=== PATIENT | male | born 2000 | race Caucasian/White ===

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

== ENCOUNTER 2021-01-14 16:44 | Emergency (ER) | payer MEDICAID ==
[~2021-01-14] VITALS: Ht 165 cm; Wt 88.0 kg
[~2021-01-14 16:44] MED LIST changes: +OMEP20TA7 PO
--- NOTE | 2021-01-14 16:57 | ED Abdominal Pain ---
General Chief Complaint: Abdominal/GI Problems Stated Complaint: ABD PAIN Source of Information: Patient, EMS History of Present Illness Date Seen by Provider: Jan 14, 2021 Time Seen by Provider: 16:41 Initial Comments PT ARRIVES VIA [facility] EMS WALKS INTO ER ON HIS OWN WITHOUT DIFFICULTY, BRINGS AN OLD/WORN "WALKING STICK" --STATES HE WALKS EVERYWHERE PT WAS WALKING FROM [place] TO [place]--STATES "I WAS SUPPOSED TO MEET A VASU HERE IN [place]" HE WAS WALKING [place] [address], HE SAW [facility] AMBULANCE ( THEY WERE GOING BACK TO [place] AFTER BRINGING ANOTHER PT HERE) AND SO HE DID "FLAGGED DOWN" THE AMBULANCE TO BRING HIM HERE TO [place] STATES HE WAS NOT PLANNING TO COME TO ER AT ALL, BUT SAW THE AMBULANCE COMING [place] [address], SO HE FLAGGED THEM DOWN TO BRING HIM HERE TO [place] PT C/O EPIGASTRIC ABDOMINAL PAIN --OFF AND ON X 1 WEEK HAS NOT TAKEN ANYTHING FOR SYMPTOMS. SYMPTOMS NO DIFFERENT TODAY HAS NOT SOUGHT CARE UNTIL TODAY NO NAUSEA/VOMITING/DIARRHEA NO FEVER NO URINARY SYMPTOMS HAS BEEN EATING AND DRINKING NORMALLY, AND HAS A BOTTLE OF WATER WITH HIM. SMOKED MARIJUANA EARLIER TODAY STATES HE DOES DRINK ALCOHOL, BUT NOT TODAY STATES HE HAS HAD THIS BEFORE AND WAS PRESCRIBED ANTACIDS, BUT NEVER PICKED THEM UP HAS NOT FOLLOWED UP WITH ANYONE FOR THIS PROBLEM STATES HE HAS HAD COVID-19 VACCINE PCP: [facility]: [facility] Allergies and Home Medications Allergies Coded Allergies: aripiprazole (Verified Allergy, Unknown, 11/22/20) Home Medications Omeprazole 20 Mg Tablet.dr, 20 MG PO BID Prescribed by: ZELALEM PENNINGTON on 12/06/20 0158 Quetiapine Fumarate 100 Mg Tablet, 100 MG PO HS Prescribed by: QUIN SANTOS on 11/22/20 0548 Patient Home Medication List Home Medication List Reviewed: Yes Review of Systems Review of Systems Constitutional: no symptoms reported Respiratory: No Symptoms Reported Cardiovascular: No Symptoms Reported Gastrointestinal: See HPI, Abdominal Pain; Denies Constipated, Denies Diarrhea, Denies Nausea, Denies Vomiting Genitourinary: No Symptoms Reported Musculoskeletal: no symptoms reported Skin: no symptoms reported Psychiatric/Neurological: No Symptoms Reported Endocrine: No Symptoms Reported Hematologic/Lymphatic: No Symptoms Reported Past Nauyayq-Rrpdry-Scmykf Hx Patient Social History Tobacco Use?: Yes Tobacco type used: Cigarettes Smoking Status: Current Everyday Smoker Substance use?: Yes Substance type: Methamphetamine, Hallucinogens, Marijuana, Other (COCAINE, MUSHROOMS, ACID) Additional substance use comme: COCAINE, MUSHROOMS, ACID Substance frequency: Daily Alcohol Use?: Yes Alcohol Frequency: Several times a month Immunizations Up To Date Tetanus Booster (TDap): Less than 5yrs PED Vaccines UTD: Yes Seasonal Allergies Seasonal Allergies: No Past Medical History Surgeries: Yes (ROMÁN IN R LOWER LEG) Orthopedic Respiratory: No Cardiac: Yes Heart Murmur, Valvular Heart Disease Neurological: No Reproductive Disorders: No Genitourinary: No Gastrointestinal: No Musculoskeletal: No Endocrine: No HEENT: No Cancer: No Did You Recieve Any Treatments: No Psychosocial: Yes (ANGER ISSUES) ADD/ADHD, Anxiety, PTSD, Suicide Attempts, Bipolar, Depression Integumentary: No Blood Disorders: No Family Medical History No Pertinent Family Hx Physical Exam Vital Signs Vital Signs - First Documented 01/14/21 16:44 Temp 35.6 Pulse 90 Resp 18 B/P (MAP) 126/82 (97) Pulse Ox 98 O2 Delivery Room Air Capillary Refill : Height/Weight/BMI Height: 5'4" Weight: 180lbs. oz. 81.730964wq; 31.00 BMI Method:Stated General Appearance: WD/WN, no apparent distress, other (AMBULATES WITHOUT DIFFICULTY. DOES NOT APPEAR ILL OR TO BE IN ANY DISCOMFORT OR DISTRESS. SHIRT SOAKED WITH SWEAT, SKIN DAMP) Respiratory: normal breath sounds, no respiratory distress, no accessory muscle use Cardiovascular: regular rate, rhythm, no murmur Gastrointestinal: normal bowel sounds, soft, no organomegaly, no pulsatile mass; No distended, No guarding, No rebound; tenderness (MILD EPIGASTRIC TENDERNESS) Extremities: normal inspection Back: normal inspection, no CVA tenderness Neurologic/Psychiatric: resaw tailer II-XII nml as tested, no motor/sensory deficits, alert, oriented x 3 Skin: normal color, warm/dry Procedures/Interventions Suture Size: 5-0 Progress/Results/Core Measures Results/Orders Lab Results Laboratory Tests Test 01/14/21 16:58 Range/Units White Blood Count 5.3 4.3-11.0 10^3/uL Red Blood Count 4.96 4.30-5.52 10^6/uL Hemoglobin 16.1 13.3-17.7 g/dL Hematocrit 46 40-54 % Mean Corpuscular Volume 93 80-99 fL Mean Corpuscular Hemoglobin 33 25-34 pg Mean Corpuscular Hemoglobin Concent 35 32-36 g/dL Red Cell Distribution Width 12.4 10.0-14.5 % Platelet Count 154 130-400 10^3/uL Mean Platelet Volume 11.4 9.0-12.2 fL Immature Granulocyte % (Auto) 0 % Neutrophils (%) (Auto) 50 42-75 % Lymphocytes (%) (Auto) 39 12-44 % Monocytes (%) (Auto) 9 0-12 % Eosinophils (%) (Auto) 2 0-10 % Basophils (%) (Auto) 0 0-10 % Neutrophils # (Auto) 2.7 1.8-7.8 10^3/uL Lymphocytes # (Auto) 2.1 1.0-4.0 10^3/uL Monocytes # (Auto) 0.5 0.0-1.0 10^3/uL Eosinophils # (Auto) 0.1 0.0-0.3 10^3/uL Basophils # (Auto) 0.0 0.0-0.1 10^3/uL Immature Granulocyte # (Auto) 0.0 0.0-0.1 10^3/uL Sodium Level 139 135-145 MMOL/L Potassium Level 4.0 3.6-5.0 MMOL/L Chloride Level 104 98-107 MMOL/L Carbon Dioxide Level 24 21-32 MMOL/L Anion Gap 11 5-14 MMOL/L Blood Urea Nitrogen 8 7-18 MG/DL Creatinine 0.85 0.60-1.30 MG/DL Estimat Glomerular Filtration Rate > 60 BUN/Creatinine Ratio 9 Glucose Level 81 70-105 MG/DL Calcium Level 9.5 8.5-10.1 MG/DL Corrected Calcium 9.3 8.5-10.1 MG/DL Total Bilirubin 0.5 0.1-1.0 MG/DL Aspartate Amino Transf (AST/SGOT) 29 5-34 U/L Alanine Aminotransferase (ALT/SGPT) 28 0-55 U/L Alkaline Phosphatase 73 40-136 U/L Total Protein 7.3 6.4-8.2 GM/DL Albumin 4.3 3.2-4.5 GM/DL Amylase Level 57 25-125 U/L Lipase 16 8-78 U/L Serum Alcohol < 10 <10 MG/DL My Orders Orders - ETTA CATALAN DO Alcohol (01/14/21 16:49) Amylase (01/14/21 16:49) Cbc With Automated Diff (01/14/21 16:49) Comprehensive Metabolic Panel (01/14/21 16:49) Drug Screen Stat (Urine) (01/14/21 16:49) Lipase (01/14/21 16:49) Ua Culture If Indicated (01/14/21 16:49) Vital Signs/I&O 01/14/21 16:44 Temp 35.6 Pulse 90 Resp 18 B/P (MAP) 126/82 (97) Pulse Ox 98 O2 Delivery Room Air Progress Progress Note : Progress Note PT WITH INCREASING ANXIETY/AGITATION, AND WANTING TO EAT AND DRINK--ADVISED HE COULD NOT DO EITHER, HE COMPLAINED OF ABDOMINAL PAIN 0545--PT REFUSING TO GIVE URINE SPECIMEN, AND NOW WANTING TO LEAVE, AND PT NOW STATES "PAIN ISN'T BAD" --AMA PAPERS SIGNED Departure Impression Primary Impression: Epigastric abdominal pain Additional Impression: Left against medical advice Disposition: 07 AGAINST MEDICAL ADVICE Condition: Against Medical Advice Departure-Patient Inst. Referrals: [facility] (PCP/Family) Primary Care Physician Add. Discharge Instructions: All discharge instructions reviewed with patient and/or family. Voiced understanding. ETTA CATALAN DO Jan 14, 2021 16:57
[2021-01-14 17:07] LABS: BASOPHILS % (AUTO) 0 % (0-10); EOSINOPHILS # (AUTO) 0.1 10^3/uL (0.0-0.3); EOSINOPHILS % (AUTO) 2 % (0-10); HEMATOCRIT 46 % (40-54); HEMOGLOBIN 16.1 g/dL (13.3-17.7); LYMPHOCYTES # (AUTO) 2.1 10^3/uL (1.0-4.0); LYMPHOCYTES % (AUTO) 39 % (12-44); MEAN CORPUSCULAR HEMOGLOBIN 33 pg (25-34); MEAN CORPUSCULAR HGB CONC 35 g/dL (32-36); MEAN CORPUSCULAR VOLUME 93 fL (80-99); MEAN PLATELET VOLUME 11.4 fL (9.0-12.2); MONOCYTES # (AUTO) 0.5 10^3/uL (0.0-1.0); MONOCYTES % (AUTO) 9 % (0-12); NEUTROPHILS # (AUTO) 2.7 10^3/uL (1.8-7.8); NEUTROPHILS % (AUTO) 50 % (42-75); PLATELET COUNT 154 10^3/uL (130-400); WHITE BLOOD COUNT 5.3 10^3/uL (4.3-11.0)
[2021-01-14 17:27] LABS: ALANINE AMINOTRANSFERASE 28 U/L (0-55); ALBUMIN 4.3 GM/DL (3.2-4.5); ALKALINE PHOSPHATASE 73 U/L (40-136); AMYLASE 57 U/L (25-125); BILIRUBIN,TOTAL 0.5 MG/DL (0.1-1.0); BUN/CREATININE RATIO 9; CALCIUM 9.5 MG/DL (8.5-10.1); CARBON DIOXIDE 24 MMOL/L (21-32); CHLORIDE 104 MMOL/L (98-107); CREATININE SERUM 0.85 MG/DL (0.60-1.30); GFR ESTIMATED > 60; GLUCOSE 81 MG/DL (70-105); LIPASE 16 U/L (8-78); SODIUM 139 MMOL/L (135-145); TOTAL PROTEIN 7.3 GM/DL (6.4-8.2)
[2021-01-14 17:49] VITALS: BP 126/80
== END 2021-01-14 17:49 | disposition left against medical advice (07) ==
LOC: EDUNIT# 16:44 → ER 16:45
DX: R10.13 Epigastric pain (principal); F31.9 Bipolar disorder, unspecified; F17.210 Nicotine dependence, cigarettes, uncomplicated; Z79.899 Other long term (current) drug therapy
CPT/HCPCS: 80053; 82150; 83690; 85025; 99283; G0480; 36415; 80320

== ENCOUNTER 2021-04-29 10:06 | Emergency (ER) | payer MEDICAID ==
[~2021-04-29] VITALS: Ht 172 cm; Wt 91.8 kg
--- NOTE | 2021-04-29 11:16 | ED Lower Extremity ---
General Chief Complaint: Lower Extremity Stated Complaint: R KNEE PAIN Nursing Triage Note: TO ED PER EMS PICKED UP IN FRONT OF [employer]. STATES DID NOT WANT TO WAKE PEOPLE AT HOUSE. REPORTS ON FRIDAY WAS IN [place] DROPPED A DOOR ON HIS R KNEE AND WENT TO [facility] ER BY EMS NO X RAY DONE MAURICE WRAP IN PLACE. REPORTS KNEE CONT'T TO HURT. MAURICE WRAP REMOVED ON ADMIT NO SWELLING OR BRUSING NOTED. Source: patient Exam Limitations: no limitations History of Present Illness Date Seen by Provider: Apr 29, 2021 Time Seen by Provider: 11:14 Initial Comments To ER with reports of right knee pain for a few days. He dropped a door on his right knee and went to [facility]. He was given an Maurice wrap. The knee continues to hurt despite Tylenol and Motrin. Today EMS picked him up in front of [employer]. Onset: last week Severity: moderate Pain/Injury Location: right knee Method of Injury: direct blow Modifying Factors: Worse With Movement Allergies and Home Medications Allergies Coded Allergies: aripiprazole (Verified Allergy, Unknown, 11/22/20) Patient Home Medication List Home Medication List Reviewed: Yes Benztropine Mesylate (Benztropine Mesylate) 1 Mg Tablet, (Reported) Entered as Reported by: NAKUL RENEE on 11/22/20 0509 Guanfacine HCl (Guanfacine HCl ER) 3 Mg Tab.er.24h, (Reported) Entered as Reported by: NAKUL RENEE on 11/22/20 0509 Hydrocodone/Acetaminophen (Hydrocodone-Acetamin 5-325 mg) 1 Each Tablet, 1 TAB PO Q4H PRN for PAIN-MODERATE (5-7) Prescribed by: RAJ MCKEON on 04/29/21 1143 Omeprazole (Omeprazole) 20 Mg Tablet.dr, 20 MG PO BID Prescribed by: ZELALEM PENNINGTON on 12/06/20 0158 Quetiapine Fumarate (Seroquel) 100 Mg Tablet, 100 MG PO HS Prescribed by: QUIN SANTOS on 11/22/20 0548 Risperidone (Risperidone) 0.25 Mg Tablet, (Reported) Entered as Reported by: NAKUL RENEE on 11/22/20 0509 Sertraline HCl (Sertraline HCl) 25 Mg Tablet, (Reported) Entered as Reported by: NAKUL RENEE on 11/22/20 0509 Trazodone HCl (Trazodone HCl) 150 Mg Tablet, (Reported) Entered as Reported by: NAKUL RENEE on 11/22/20 0509 Review of Systems Constitutional: see HPI EENTM: see HPI Respiratory: no symptoms reported Cardiovascular: no symptoms reported Genitourinary: no symptoms reported Musculoskeletal: see HPI Skin: no symptoms reported Psychiatric/Neurological: No Symptoms Reported Past Jcueypo-Bzgsai-Tmhkqg Hx Patient Social History Tobacco Use?: Yes Substance use?: Yes Substance type: Marijuana Alcohol Use?: No Immunizations Up To Date Tetanus Booster (TDap): Less than 5yrs PED Vaccines UTD: Yes First/Initial COVID19 Vaccinat: November COVID19 Vaccination Victor Hugo: JAN COVID19 Vaccine 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: ABDOULAYE Seasonal Allergies Seasonal Allergies: No Past Medical History Surgeries: Yes (ROMÁN IN R LOWER LEG) Orthopedic Respiratory: No Cardiac: Yes Heart Murmur, Valvular Heart Disease Neurological: No Reproductive Disorders: No Genitourinary: No Gastrointestinal: No Musculoskeletal: No Endocrine: No HEENT: No Cancer: No Did You Recieve Any Treatments: No Psychosocial: Yes (ANGER ISSUES) ADD/ADHD, Anxiety, PTSD, Suicide Attempts, Bipolar, Depression Integumentary: No Blood Disorders: No Family Medical History No Pertinent Family Hx Physical Exam Vital Signs Vital Signs - First Documented 04/29/21 10:06 Temp 36.4 Pulse 87 Resp 18 B/P (MAP) 111/61 (78) Pulse Ox 96 O2 Delivery Room Air Capillary Refill : Less Than 3 Seconds Height, Weight, BMI Height: 5'4" Weight: 180lbs. oz. 81.433109hx; 31.00 BMI Method:Stated General Appearance: WD/WN, no apparent distress HEENT: PERRL/EOMI, normal ENT inspection Respiratory: no respiratory distress, no accessory muscle use Gastrointestinal: normal bowel sounds, non tender, soft Hips: bilateral hip non-tender, bilateral hip normal inspection, bilateral hip normal range of motion Legs: bilateral leg non-tender, bilateral leg normal inspection, bilateral leg normal range of motion Knees: left knee non-tender; bilateral knee normal inspection, bilateral knee normal range of motion, bilateral knee other (There is no effusion erythema ecchymosis or abrasion. Most of the tenderness is directly over the superior aspect of the patella.) Ankles: bilateral ankle non-tender, bilateral ankle normal inspection, bilateral ankle normal range of motion Feet: bilateral foot non-tender, bilateral foot normal inspection, bilateral foot normal range of motion Neurologic/Psychiatric: alert, normal mood/affect, oriented x 3 Skin: normal color, warm/dry Procedures/Interventions Suture Size: 5-0 Progress/Results/Core Measures Results/Orders My Orders Orders - RAJ MCKEON APRN Knee, Right, 3 Views (04/29/21 11:14) Hydrocodone/Apap 5/325 Tablet (Lortab 5 (04/29/21 12:00) Vital Signs/I&O 04/29/21 10:06 Temp 36.4 Pulse 87 Resp 18 B/P (MAP) 111/61 (78) Pulse Ox 96 O2 Delivery Room Air Blood Pressure Mean: 78 Departure Impression Primary Impression: Contusion of knee Disposition: 01 HOME, SELF-CARE Condition: Stable Departure-Patient Inst. Decision time for Depature: 11:41 Referrals: [facility] (PCP/Family) Primary Care Physician Patient Instructions: Knee Pain Add. Discharge Instructions: 1. Follow-up with primary care to discuss MRI if your symptoms do not improve. Return to ER for any concerns. All discharge instructions reviewed with patient and/or family. Voiced understanding. Scripts Hydrocodone/Acetaminophen (Hydrocodone-Acetamin 5-325 mg) 1 Each Tablet 1 TAB PO Q4H PRN for PAIN-MODERATE (5-7), #5 TAB Prov: RAJ MCKEON APRN 04/29/21 RAJ MCKEON APRN Apr 29, 2021 11:16
--- NOTE | 2021-04-29 11:42 | Diagnostic Imaging Report ---
CLINICAL INDICATION: Patient with swelling and bruising of the right knee, status post dropping a door on right knee. EXAM: X-ray of the right knee, 3 views. COMPARISON: None. FINDINGS: There is no acute fracture or dislocation. There is no knee effusion. There is no significant bone abnormality. IMPRESSION: There is no acute fracture or dislocation. Dictated by: Dictated on workstation # [id number]
[2021-04-29] MEDS ORDERED: ACHD5005 PO (11:43)
[2021-04-29] MEDS ORDERED: HYDROcodone/APAP 5 MG/325 MG (LORTAB) TAB PO ONE (12:00)
[2021-04-29 12:04] VITALS: BP 111/61
== END 2021-04-29 12:07 | disposition home or self-care (01) ==
LOC: EDUNIT# 10:06 → ER 10:07
DX: S80.01XA Contusion of right knee, initial encounter (principal); F41.9 Anxiety disorder, unspecified; F31.9 Bipolar disorder, unspecified; Z72.0 Tobacco use; Z79.899 Other long term (current) drug therapy; W20.8XXA Other cause of strike by thrown, projected or falling object, initial encounter
CPT/HCPCS: 73562

== ENCOUNTER 2021-06-29 00:50 | Emergency (ER) | payer MEDICAID ==
[~2021-06-29] VITALS: Ht 172 cm; Wt 91.0 kg
[~2021-06-29 00:50] MED LIST changes: +ACHD5005 PO
--- NOTE | 2021-06-29 01:17 | ED General ---
General Chief Complaint: General Problems/Pain Stated Complaint: COLD Nursing Triage Note: PT AMB TO ER FROM [facility] WITH C/O BEING NUMB ALL OVER AND COLD FROM WALKING [place]CROSS T[place] Source of Information: Patient, EMS Exam Limitations: No Limitations (YUSEF FONSECA) History of Present Illness Date Seen by Provider: Jun 29, 2021 Time Seen by Provider: 01:00 Initial Comments This is a 20 YO male with hx of schizophrenia and PTSD presents to the ED with numbness over his whole body. He states he and a friend have been out walking in the cold for 2 hours when symptoms started. Denies any other complaints except right knee pain that he has had for the past week. Otherwise denies any complaints, including no recent illness, chest pain, or shortness of breath. Associated Systoms: No Chest Pain, No Rash (YUSEF FONSECA) Allergies and Home Medications Allergies Coded Allergies: aripiprazole (Verified Allergy, Unknown, 11/22/20) Patient Home Medication List Home Medication List Reviewed: Yes (SUNNY DOBBINS MD) Benztropine Mesylate (Benztropine Mesylate) 1 Mg Tablet, (Reported) Entered as Reported by: NAKUL RENEE on 11/22/20 0509 Guanfacine HCl (Guanfacine HCl ER) 3 Mg Tab.er.24h, (Reported) Entered as Reported by: NAKUL RENEE on 11/22/20 0509 Hydrocodone/Acetaminophen (Hydrocodone-Acetamin 5-325 mg) 1 Each Tablet, 1 TAB PO Q4H PRN for PAIN-MODERATE (5-7) Prescribed by: RAJ MCKEON on 04/29/21 1143 Omeprazole (Omeprazole) 20 Mg Tablet.dr, 20 MG PO BID Prescribed by: ZELALEM PENNINGTON on 12/06/20 0158 Quetiapine Fumarate (Seroquel) 100 Mg Tablet, 100 MG PO HS Prescribed by: QUIN SANTOS on 11/22/20 0548 Risperidone (Risperidone) 0.25 Mg Tablet, (Reported) Entered as Reported by: NAKUL RENEE on 11/22/20 0509 Sertraline HCl (Sertraline HCl) 25 Mg Tablet, (Reported) Entered as Reported by: NAKUL RENEE on 11/22/20 0509 Trazodone HCl (Trazodone HCl) 150 Mg Tablet, (Reported) Entered as Reported by: NAKUL RENEE on 11/22/20 0509 Review of Systems Review of Systems Constitutional: No dizziness, No fever EENTM: No blurred vision, No double vision Respiratory: No cough, No dyspnea on exertion Cardiovascular: No chest pain, No palpitations Gastrointestinal: No abdominal pain, No nausea, No vomiting Genitourinary: no symptoms reported Musculoskeletal: see HPI, joint pain Skin: no symptoms reported Psychiatric/Neurological: Denies Headache; Numbness Hematologic/Lymphatic: No Symptoms Reported Immunological/Allergic: no symptoms reported (YUSEF FONSECA MED STUDENT) Past Zcdtxsb-Rpelzy-Otxyaa Hx Patient Social History Tobacco Use?: Yes Tobacco type used: Cigarettes Smoking Status: Current Everyday Smoker Smokeless Tobacco Frequency: Current Everyday User Use of E-Cig and/or Vaping dev: Yes E-Cig or Vaping type used: Nicotine Use of E-Cig and/or Vaping Marquis: Current Everyday User Substance use?: Yes Substance type: Marijuana Substance frequency: Daily Alcohol Use?: Yes Alcohol type: Beer Alcohol Frequency: Once in a while Pt feels they are or have been: No (YUSEF FONSECA MED STUDENT) Immunizations Up To Date Tetanus Booster (TDap): Less than 5yrs PED Vaccines UTD: Yes Influenza Vaccine Up-to-Date: No; Not Current First/Initial COVID19 Vaccinat: November COVID19 Vaccination Victor Hugo: JAN COVID19 Vaccine Analytical Strategist: LILLI (YUSEF FONSECA STUDENT) Seasonal Allergies Seasonal Allergies: No (YUSEF FONSECA STUDENT) Past Medical History Surgeries: Yes (ROMÁN IN R LOWER LEG) Orthopedic Respiratory: No Cardiac: Yes Heart Murmur, Valvular Heart Disease Neurological: No Reproductive Disorders: No Genitourinary: No Gastrointestinal: No Musculoskeletal: No Endocrine: No HEENT: No Cancer: No Did You Recieve Any Treatments: No Psychosocial: Yes (ANGER ISSUES) ADD/ADHD, Anxiety, PTSD, Suicide Attempts, Bipolar, Depression Integumentary: No Blood Disorders: No (YUSEF FONSECA MED STUDENT) Family Medical History No Pertinent Family Hx (YUSEF FONSECA STUDENT) Physical Exam Vital Signs Vital Signs - First Documented 06/29/21 00:50 Temp 36.6 Pulse 97 Resp 18 B/P (MAP) 116/77 (90) Pulse Ox 97 O2 Delivery Room Air (SUNNY DOBBINS MD) Vital Signs Capillary Refill : (YUSEF FONSECA MED STUDENT) Height, Weight, BMI Height: 5'4" Weight: 180lbs. oz. 81.619104na; 30.00 BMI Method:Stated General Appearance: No Apparent Distress, WD/WN Eyes: Bilateral Eye Normal Inspection, Bilateral Eye EOMI HEENT: PERRL/EOMI; No Scleral Icterus (L), No Scleral Icterus (R) Neck: Non Tender, Supple Respiratory: Chest Non Tender, Lungs Clear, Normal Breath Sounds, No Accessory Muscle Use, No Respiratory Distress Cardiovascular: Regular Rate, Rhythm, Normal Peripheral Pulses, Systolic Murmur ((known to pt)) Gastrointestinal: Non Tender, Soft; No Distended, No Guarding Back: No CVA Tenderness, No Vertebral Tenderness Extremity: Normal Capillary Refill, Normal Inspection, Normal Range of Motion, No Pedal Edema, Other (Ambulatory in the ED, moves all extremities without difficulty) Neurologic/Psychiatric: Alert, Oriented x3, Normal Mood/Affect, Other (reports no sensation to touch throughout his whole body except for diffuse right knee tenderness; full ROM of the knee, ambulates without assistance, no ecchymosis, swelling, deformity, or bony tenderness) Skin: Normal Color, Warm/Dry (YUSEF FONSECA MED STUDENT) Procedures/Interventions Suture Size: 5-0 (YUSEF FONSECA STUDENT) Progress/Results/Core Measures Suspected Sepsis SIRS Temperature: Pulse: 97 Respiratory Rate: 18 Blood Pressure 116 /77 Mean: 90 (YUSEF FONSECA STUDENT) Results/Orders Vital Signs/I&O 06/29/21 00:50 Temp 36.6 Pulse 97 Resp 18 B/P (MAP) 116/77 (90) Pulse Ox 97 O2 Delivery Room Air (SUNNY DOBBINS MD) Vital Signs/I&O Capillary Refill : (YUSEF FONSECA STUDENT) Blood Pressure Mean: 90 Progress Note : Time: 01:37 Progress Note 20-year-old male presents to the emergency department by ambulance, however walks in from the ambulance complaining of "numbness all over". Smoked pot 2 hours ago, has been walking outside in 38 degree weather. Both he and his girlfriend developed the same "complaint". No trauma. No headaches. No loss of bowel or bladder function. No weakness to the extremities. No recent febrile illnesses. Physical exam is unremarkable for any acute neurologic abnormality. He does have a soft 2/6 systolic murmur heard throughout the precordium. Vital signs are stable. Patient is able to ambulate, manipulate his phone, reach and grab, follow directions. No clinical or objective findings to warrant further evaluation from the emergency department. patient is medically cleared for discharge. (SUNNY DOBBINS MD) Departure Impression Primary Impression: Numbness Disposition: HOME, SELF-CARE Condition: Stable Departure-Patient Inst. Decision time for Depature: 01:35 (SUNNY DOBBINS MD) Referrals: [facility] (PCP/Family) Primary Care Physician Patient Instructions: Paresthesia (DC) Add. Discharge Instructions: Continue routine prescribed medications as directed. You should probably stop smoking pot. Drink plenty of fluids to stay well-hydrated. Follow-up with [facility]. Return to the emergency department for any new, concerning or emergent symptoms. Verification and Attestation of Medical Student E/M Service A medical student performed and documented this service in my presence. I reviewed and verified all information documented by the medical student and made modifications to such information, when appropriate. I personally performed the physical exam and medical decision making. Sunny Dobbins, Jun 29, 2021,01:37 (SUNNY DOBBINS MD) YUSEF FONSECA MED STUDENT Jun 29, 2021 01:17 SUNNY DOBBINS MD Jun 29, 2021 01:36
[2021-06-29 01:44] VITALS: BP 116/77
== END 2021-06-29 01:44 | disposition home or self-care (01) ==
LOC: EDUNIT# 00:54 → ER 00:57
DX: R20.0 Anesthesia of skin (principal); F41.9 Anxiety disorder, unspecified; F31.9 Bipolar disorder, unspecified; F20.9 Schizophrenia, unspecified; F17.210 Nicotine dependence, cigarettes, uncomplicated; Z79.899 Other long term (current) drug therapy
CPT/HCPCS: 99281

== ENCOUNTER 2021-10-03 14:22 | Emergency (ER) | payer MEDICAID ==
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
[2021-10-03] MEDS ORDERED: RT-ALBUTEROL SULF 2.5 MG/3 ML PRE-MIX VIAL INH ONE (14:45)
[2021-10-03] MEDS ORDERED: RT-ALBUINH IH (14:48)
--- NOTE | 2021-10-03 15:00 | Diagnostic Imaging Report ---
EXAMINATION: Chest 2 view HISTORY: Shortness of breath. COMPARISON: 12/05/2020. FINDINGS: The lung volumes are normal. No focal consolidation is seen. No large pleural effusion or pneumothorax is seen. The cardiomediastinal silhouette is normal in size and contour. No acute osseous abnormality is seen. IMPRESSION: 1. No acute pleuroparenchymal process. Dictated by: Dictated on workstation # [id number]
[2021-10-03 15:40] VITALS: BP 135/92
== END 2021-10-03 15:40 | disposition home or self-care (01) ==
LOC: EDUNIT# 14:22 → ER 14:23
DX: R06.02 Shortness of breath (principal); F17.210 Nicotine dependence, cigarettes, uncomplicated
CPT/HCPCS: 71046; 93005; 94640

== ENCOUNTER 2022-04-16 18:44 | Emergency (ER) | payer MEDICAID ==
[~2022-04-16 18:44] MED LIST changes: +ALBU8.5H6 IH; +OMEP20TA56 PO; -OMEP20TA7 PO
== END 2022-04-16 18:53 | disposition left against medical advice (07) ==
LOC: EDUNIT# 18:44 → ER 18:45
DX: M79.606 Pain in leg, unspecified (principal)